=== PATIENT | female | born 1950 | race Asian ===

== ENCOUNTER 2017-12-18 14:45 | Emergency (ER) | payer MEDICARE, OTHER ==
[~2017-12-18] VITALS: Ht 160 cm; Wt 56.7 kg
[~2017-12-18 14:45] MED LIST: ACYCLOVIR400 MG ORAL; AMLODIPINE BESYL5 MG ORAL; ASPIRIN-LOW81 MG ORAL; BENADRYL25 M3 PO; HM DOUBLE ANT28.4 G1 TP; KEFLEX500 MG ORAL; KENALOG 0.1% CR15 GM TP
[2017-12-18 15:06] VITALS: BP 118/68
[2017-12-18] MEDS ORDERED: Pantoprazole Inj IV ONE (15:15)
[2017-12-18 16:06] LABS: INR 0.9 (0.9-1.1)
[2017-12-18 16:12] LABS: BASOPHILS % (AUTO) 0.7 % (0.0-2.0); EOSINOPHILS % (AUTO) 0.7 % (0.0-3.0); HEMATOCRIT 40.8 % (37.0-47.0); HEMOGLOBIN 14.1 G/DL (12.0-16.0); LYMPHOCYTES % (AUTO) 11.2 % (20.0-45.0); MEAN CORPUSCULAR VOLUME 90 FL (80-99); MONOCYTES % (AUTO) 5.7 % (1.0-10.0); NEUTROPHILS % (AUTO) 81.7 % (45.0-75.0); PLATELET COUNT 217 K/UL (150-450); RED BLOOD COUNT 4.53 M/UL (4.20-5.40); RED CELL DISTRIBUTION WIDTH 11.6 % (11.6-14.8); WHITE BLOOD COUNT 11.4 K/UL (4.8-10.8)
[2017-12-18 16:26] LABS: ANION GAP 11 mmol/L (5-15); BLOOD UREA NITROGEN 43 mg/dL (7-18); CALCIUM 9.3 MG/DL (8.5-10.1); CARBON DIOXIDE 27 MMOL/L (21-32); CHLORIDE 100 MMOL/L (98-107); CREATININE 1.3 MG/DL (0.55-1.30); SODIUM 138 MMOL/L (136-145)
[2017-12-18 16:31] LABS: ALANINE AMINOTRANSFERASE 74 U/L (12-78); ALBUMIN 3.1 G/DL (3.4-5.0); ALBUMIN/GLOBULIN RATIO 0.7 (1.0-2.7); ALKALINE PHOSPHATASE 83 U/L (46-116); ASPARTATE AMINO TRANSFERASE 222 U/L (15-37); BILIRUBIN,TOTAL 0.8 MG/DL (0.2-1.0)
--- NOTE | 2017-12-18 17:43 | Emergency Room Report ---
History of Present Illness General Chief Complaint: Gastrointestinal Illness Source: Patient Present Illness HPI 67-year-old female resents ED for evaluation. Per EMS patient noted to be bleeding for the last 5 days. Hypotensive in the field. Given IV fluids. Patient coming from home. Patient is Spanish speaking. Is a poor historian. States this is never happened before. Does not know what medication she takes. Denies any abdominal pain. Denies any nausea or vomiting. Denies chest pain or shortness of breath. No other aggravating relieving factors. Denies any other associated symptoms Allergies: Coded Allergies: NO KNOWN ALLERGIES (Unverified Allergy, Unknown, 05/03/15) Patient History Past Medical History: HTN Past Surgical History: none Pertinent Family History: none Social History: Denies: smoking, alcohol use, drug use Now: No Immunizations: UTD Reviewed Nursing Documentation: PMH: Agreed; PSxH: Agreed Nursing Documentation-PMH Past Medical History: No History, Except For Hx Hypertension: Yes Review of Systems All Other Systems: negative except mentioned in HPI Physical Exam Vital Signs Date Time Temp Pulse Resp B/P (MAP) Pulse Ox O2 Delivery O2 Flow Rate FiO2 12/18/17 14:41 97.4 99 20 96/64 99 Room Air 97.3 Sp02 EP Interpretation: reviewed, normal General Appearance: no apparent distress, alert, GCS 15, non-toxic Head: normocephalic, atraumatic Eyes: bilateral eye normal inspection, bilateral eye PERRL ENT: hearing grossly normal, normal pharynx, no angioedema, normal voice Neck: full range of motion, supple/symm/no masses Respiratory: chest non-tender, lungs clear, normal breath sounds, speaking full sentences Cardiovascular #1: regular rate, rhythm, no edema Cardiovascular #2: 2+ carotid (R), 2+ carotid (L), 2+ radial (R), 2+ radial (L) , 2+ dorsalis pedis (R), 2+ dorsalis pedis (L) Gastrointestinal: normal bowel sounds, soft, no guarding, no rebound, other Rectal: deferred Genitourinary: normal inspection, no CVA tenderness, other - vaginal bleeding Musculoskeletal: back normal, gait/station normal, normal range of motion, non- tender Neurologic: alert, oriented x3, responsive, motor strength/tone normal, sensory intact, speech normal Psychiatric: judgement/insight normal, memory normal, mood/affect normal, no suicidal/homicidal ideation Reflexes: 3+ bicep (R), 3+ bicep (L), 3+ tricep (R), 3+ tricep (L), 3+ knee (R) , 3+ knee (L) Skin: normal color, no rash, warm/dry, well hydrated Lymphatic: no adenopathy Procedures Critical Care Time Critical Care Time i. I feel this is a highly complex case requiring extensive working including EKG/Rhythm strip, Xray/CT/US, Blood/urine lab work, repeat exams while in ED, and administration of strong opiates/narcotics for pain control, admission to hospital or close patient follow up. Total time: 30 min bedside evaluation and treatment excludes procedures (EKG). Reason for critical care:hypotensive, SVT Possible complications: hypotension, hypertension, VA, shock, arrhythmias, metabolic acidosis, end organ damage, respiratory failure. Interventions: IVFs, adenosine Course: She presenting with vaginal bleeding. After ultrasound patient went into SVT. Hypotensive. Given adenosine 6 mg plus IV fluids with conversion. Blood pressure improved. Patient tolerated procedure without difficulty Consultations: nursing staff, EMS, family Performed by: Dr Gardner Tolerated well condition = serious j. because of unstable vital signs this patient had a condition that could potentially threaten life or limb. I feel this is a critical patient who required my full attention while patient was considered critical. Total Critical Care Time excluding procedures was greater than 35 minutes Medical Decision Making Diagnostic Impression: Primary Impression: Vaginal bleeding Additional Impression: SVT (supraventricular tachycardia) ER Course Hospital Course 67-year-old female presents ED complaining of vaginal bleeding, hypotensive Differential diagnoses include: fibroids, anemia, DUB Clinical course Patient placed on stretcher. gambling monitor. After initial history and physical I ordered labs, IV fluids, pelvic US Labs - no leukocytosis, Hb/Hct stable, electrolytes ok, trop 0.045 Pelvic US - ? mass vs fibroids Because of insurance patient will be transferred Just prior to transport arrival, patient went into SVT. 2 the 160s, hypotensive. Given adenosine 6 mg with IV fluids. Patient converted. Resulting blood pressure improved I feel this is a highly complex case requiring extensive working including EKG/ Rhythm strip, Xray/CT/US, Blood/urine lab work, repeat exams while in ED, and administration of strong opiates/narcotics for pain control, admission to hospital or close patient follow up. Diagnosis - vaginal bleeding, SVT Patient transferred in serious condition Labs Test 12/18/17 15:30 White Blood Count 11.4 K/UL (4.8-10.8) Red Blood Count 4.53 M/UL (4.20-5.40) Hemoglobin 14.1 G/DL (12.0-16.0) Hematocrit 40.8 % (37.0-47.0) Mean Corpuscular Volume 90 FL (80-99) Mean Corpuscular Hemoglobin 31.0 PG (27.0-31.0) Mean Corpuscular Hemoglobin Concent 34.5 G/DL (32.0-36.0) Red Cell Distribution Width 11.6 % (11.6-14.8) Platelet Count 217 K/UL (150-450) Mean Platelet Volume 7.5 FL (6.5-10.1) Neutrophils (%) (Auto) 81.7 % (45.0-75.0) Lymphocytes (%) (Auto) 11.2 % (20.0-45.0) Monocytes (%) (Auto) 5.7 % (1.0-10.0) Eosinophils (%) (Auto) 0.7 % (0.0-3.0) Basophils (%) (Auto) 0.7 % (0.0-2.0) Prothrombin Time 9.9 SEC (9.30-11.50) Prothromb Time International Ratio 0.9 (0.9-1.1) Activated Partial Thromboplast Time 31 SEC (23-33) Sodium Level 138 MMOL/L (136-145) Potassium Level 3.0 MMOL/L (3.5-5.1) Chloride Level 100 MMOL/L (98-107) Carbon Dioxide Level 27 MMOL/L (21-32) Anion Gap 11 mmol/L (5-15) Blood Urea Nitrogen 43 mg/dL (7-18) Creatinine 1.3 MG/DL (0.55-1.30) Estimat Glomerular Filtration Rate 40.6 mL/min (>60) Glucose Level 120 MG/DL (74-106) Calcium Level 9.3 MG/DL (8.5-10.1) Total Bilirubin 0.8 MG/DL (0.2-1.0) Aspartate Amino Transf (AST/SGOT) 222 U/L (15-37) Alanine Aminotransferase (ALT/SGPT) 74 U/L (12-78) Alkaline Phosphatase 83 U/L (46-116) Troponin I 0.045 ng/mL (0.000-0.056) Total Protein 7.7 G/DL (6.4-8.2) Albumin 3.1 G/DL (3.4-5.0) Globulin 4.6 g/dL Albumin/Globulin Ratio 0.7 (1.0-2.7) Lipase 131 U/L (73-393) EKG Diagnostic Results Rate: tachycardiac Rhythm: other - SVT ST Segments: other - twave inversions ASA given to the pt in ED: No Rhythm Strip Diag. Results EP Interpretation: yes Rhythm: no PVC's, no ectopy CT/MRI/US Diagnostic Results CT/MRI/US Diagnostic Results : Imaging Test Ordered: Pelvic US Impression Possible debris in the mildly thickened, underdistended urinary bladder. Urinalysis may be considered if there is clinical concern for cystitis. Myomatous uterus. Indeterminate 1.3 cm heterogeneous focus near the cervix is indeterminate, possibly a fibroid. Malignancy is not excluded. Consider gynecologic consultation. Last Vital Signs Date Time Temp Pulse Resp B/P (MAP) Pulse Ox O2 Delivery O2 Flow Rate FiO2 12/18/17 15:06 97.3 87 20 118/68 99 Room Air 97.3 Status: improved Disposition: XFER SNF Condition: Serious Referrals: [facility],REFERRING (PCP) Chucho Gardner MD Dec 18, 2017 17:43
[2017-12-18] MEDS ORDERED: Adenosine 6mg/2ml Inj IVP ONE (18:15)
[2017-12-18 18:20] VITALS: BP 113/63
[2017-12-18] MEDS ORDERED: Morphine Sulfate 4mg/ml Inj IVP ONE (18:30)
--- NOTE | 2017-12-18 18:35 | Diagnostic Imaging Report ---
EXAM: US Pelvis Complete, Transabdominal CLINICAL HISTORY: Pelvic pain, vaginal bleeding TECHNIQUE: Real-time transabdominal pelvic ultrasound (complete) with image documentation. COMPARISON: No relevant prior studies available. FINDINGS: Uterus/cervix: The uterus is normal in size and measures 5.9 x 4.8 x 2. 5 cm. Heterogeneous hypoechoic partially exophytic lesion in the uterine fundus measuring 4.5 cm is favored to represent a subserosal fibroid. An ill-defined area in the lower uterine segment/endocervical canal measuring 1.3 cm is indeterminate. Normal endometrium measuring 5 mm. Right ovary: Unremarkable in size and appearance, measuring 2.3 x 1.5 x 0.9 cm. Normal blood flow. No masses. Left ovary: Unremarkable in size and appearance, measuring 1.8 x 1.9 x 0.8 cm. Normal blood flow. No masses. Free fluid: No free fluid. Bladder: Possible debris in the urinary bladder. Mild thickening of the underdistended urinary bladder. IMPRESSION: Possible debris in the mildly thickened, underdistended urinary bladder. Urinalysis may be considered if there is clinical concern for cystitis. Myomatous uterus. Indeterminate 1.3 cm heterogeneous focus near the cervix is indeterminate, possibly a fibroid. Malignancy is not excluded. Consider gynecologic consultation.
[2017-12-18 18:47] VITALS: BP 113/63
== END 2017-12-18 19:00 | disposition short-term general hospital (02) ==
LOC: EDBD 14:45 → EMR 16:22
DX: N93.9 Abnormal uterine and vaginal bleeding, unspecified (principal); I47.1 Supraventricular tachycardia; I10 Essential (primary) hypertension
CPT/HCPCS: 36415; 76830; 76856; 80053; 83690; 84484; 85025; 85610; 85730; 86850; 86900; 86901; 93005; 96361; 96374; 96375; 99291; C9113; J0153; J2270